=== PATIENT | male | born 1950 | race Caucasian/White ===

== ENCOUNTER → 2017-04-01 | Outpatient (CLI) | payer MEDICARE, OTHER | END | disposition home or self-care (01) | LOC: CFH 13:05 | PROVIDERS: ATTEND Nurse Practitioner | DX: E04.2 Nontoxic multinodular goiter (principal); R94.6 Abnormal results of thyroid function studies | CPT/HCPCS: 76536 ==

== ENCOUNTER → 2017-06-21 | Outpatient (CLI) | payer MEDICARE ==
[~2017-06-21] MED LIST: ASCO10004 PO; ASPI-496 PO; ATOR10TA9 PO; CALC300T4 PO; CHOL10003 PO; ENAL20TA PO; FINA5TAB4 PO; FURO20TA3 PO; GARL10002 PO; HYDR-3240 PO; HYDR-3241 PO; Hydro Eye PO; IBUP-1223 PO; LEVO137T2 PO; METF500T4 PO; OMEG100023 PO; POTA10CA PO; RANI150T4 PO; TRIA1TAB5 PO; TURM500C4 PO; UBID1CAP43 PO; hydro Eye PO; zinc PO
== END | disposition home or self-care (01) ==
LOC: CFH 11:34
PROVIDERS: ATTEND Surgery
DX: K40.90 Unilateral inguinal hernia, without obstruction or gangrene, not specified as recurrent (principal); Z90.49 Acquired absence of other specified parts of digestive tract; Z85.850 Personal history of malignant neoplasm of thyroid; Z98.890 Other specified postprocedural states
CPT/HCPCS: 70491; 74177

== ENCOUNTER 2019-09-05 13:42 | Outpatient (CLI) | payer MEDICARE ==
[~2019-09-05 13:42] MED LIST changes: +METF500T17 PO; -METF500T4 PO
== END 2019-09-05 23:59 | disposition home or self-care (01) ==
LOC: PETCFH 13:42
PROVIDERS: ATTEND Pathology Hematology
DX: C73 Malignant neoplasm of thyroid gland (principal)
CPT/HCPCS: 78815; A9552